=== PATIENT | female | born 1955 ===

== ENCOUNTER 2018-11-15 07:10 | Outpatient (CLI) | payer MEDICAID | END 2018-11-15 07:11 | disposition home or self-care (01) | LOC: CARDIO 07:10 ==

== ENCOUNTER 2018-11-24 05:40 | Outpatient (CLI) | payer MEDICAID | END 2018-11-24 05:41 | disposition home or self-care (01) | LOC: PET-BROA 05:40 | DX: C01 Malignant neoplasm of base of tongue (principal) ==

== ENCOUNTER 2018-12-04 09:18 | Outpatient (CLI) | payer MEDICAID | END 2018-12-04 09:19 | disposition home or self-care (01) | LOC: RAD 09:18 | DX: C01 Malignant neoplasm of base of tongue (principal) ==